=== PATIENT | female | born 1935 | race Caucasian/White ===

== ENCOUNTER 2018-11-09 11:34 | Emergency (ER) | payer MEDICARE ==
[~2018-11-09] VITALS: Ht 170.2 cm; Wt 63.6 kg
[~2018-11-09 11:34] MED LIST: FERR325T39 PO; HYDR-4383 PO; LOSA50TA64 PO; OMEP20CA10 PO
[2018-11-09] MEDS ORDERED: morphine 4 MG/ML inj SYRINge IV ONE (12:55)
[2018-11-09 13:37] LABS: BASOPHILS % (AUTO) 0.7 % (0-1); EOSINOPHILS % (AUTO) 0.9 % (0-6); HEMATOCRIT 32.2 % (35.0-45.0); HEMOGLOBIN 11.3 g/dl (12.0-16.0); LYMPHOCYTES # (AUTO) 1.5 X10'3 (1.1-4.8); LYMPHOCYTES % (AUTO) 27.5 % (21-51); MEAN CORPUSCULAR HEMOGLOBIN 31.7 PG (27.0-31.0); MEAN CORPUSCULAR HGB CONC 35.1 g/dL (33.0-36.5); MEAN CORPUSCULAR VOLUME 90.3 FL (78-98); MEAN PLATELET VOLUME 6.7 FL (7.4-10.4); MONOCYTES # (AUTO) 0.4 X10'3 (0-0.9); MONOCYTES % (AUTO) 7.7 % (2-12); NEUTROPHILS # (AUTO) 3.4 X10'3 (1.8-7.7); NEUTROPHILS % (AUTO) 63.2 % (42-75); PLATELET COUNT 295 X10'3 (140-440); RED BLOOD COUNT 3.56 X10'6 (4.20-5.60); WHITE BLOOD COUNT 5.4 X10'3 (4.5-11.0)
[2018-11-09 13:41] LABS: INR 1.1 INR
[2018-11-09 13:42] LABS: ALANINE AMINOTRANSFERASE 24 U/L (12-78); ALBUMIN 3.5 G/DL (3.4-5.0); ALKALINE PHOSPHATASE 48 IU/L (46-116); ANION GAP 8 (8-16); ASPARTATE AMINO TRANSFERASE 14 U/L (10-37); BILIRUBIN,TOTAL 0.5 MG/DL (0.1-1.0); BLOOD UREA NITROGEN 11 MG/DL (7-18); CALCIUM 8.7 MG/DL (8.5-10.1); CHLORIDE 100 MMOL/L (99-107); CREATININE 0.55 MG/DL (0.40-0.90); GLUCOSE 99 MG/DL (70-104); POTASSIUM 3.6 MMOL/L (3.5-5.1); SODIUM 134 MMOL/L (135-145); TOTAL CARBON DIOXIDE 25.7 MMOL/L (24-32); TOTAL PROTEIN 7.1 G/DL (6.4-8.2); eGFR > 90 ML/MIN
[2018-11-09 13:50] LABS: LIPASE 245 U/L (73-393)
[2018-11-09] MEDS ORDERED: furosemide 10 MG/1 ML 10ml inj IV ONE (14:20)
[2018-11-09 14:50] LABS: CLARITY,URINE CLEAR (Clear); COLOR,URINE YELLOW (Yellow); GLUCOSE, URINE NEGATIVE (Neg); KETONES,URINE NEGATIVE (Neg); LEUKOCYTE ESTERASE ,URINE SMALL (Neg); NITRITES, URINE NEGATIVE (Neg); OCCULT BLOOD,URINE TRACE-INTACT (Neg); PH,URINE 6.5 (4.8-8.0); PROTEIN,URINE NEGATIVE (Neg); UROBILINOGEN,URINE 0.2 E.U/dL (0.2-1.0)
[2018-11-09 14:55] LABS: UA COLLECTION TYPE CLN CATCH MIDSTREAM
[2018-11-09 14:57] LABS: BACTERIA,URINE 2+ /HPF (Neg); MUCUS STRANDS NONE SEEN /LPF (Neg); RBC,URINE 0-2 /HPF (0-2); SQUAMOUS EPITHELIAL CELL,UR MANY /LPF (FEW); YEAST FEW /HPF (NEGATIVE)
[2018-11-09] MEDS ORDERED: HYDR-3965 PO (15:25)
[2018-11-09 15:41] VITALS: BP 191/99
== END 2018-11-09 15:44 | disposition home or self-care (01) ==
LOC: ER 11:35
DX: S32.018A Other fracture of first lumbar vertebra, initial encounter for closed fracture (principal); I11.0 Hypertensive heart disease with heart failure; I50.9 Heart failure, unspecified; G89.29 Other chronic pain; F17.200 Nicotine dependence, unspecified, uncomplicated; Z90.49 Acquired absence of other specified parts of digestive tract; Z88.0 Allergy status to penicillin; Z79.899 Other long term (current) drug therapy; X58.XXXA Exposure to other specified factors, initial encounter; Y93.89 Activity, other specified; Y92.89 Other specified places as the place of occurrence of the external cause; Y99.8 Other external cause status
CPT/HCPCS: 36415; 71045; 72110; 80053; 81001; 83690; 83735; 83880; 84484; 85025; 85379; 85610; 93005; 96374; 99284; J2270

== ENCOUNTER 2020-09-17 13:44 | Observation (INO) | payer MEDICARE ==
[~2020-09-17] VITALS: Ht 170.2 cm; Wt 65.9 kg
[~2020-09-17 13:44] MED LIST changes: +ATOR20TA66 PO; +COR3.125T PO; -FERR325T39 PO; +FURO40TA4 PO; -HYDR-4383 PO; +LOSA25TA41 PO; -LOSA50TA64 PO; -OMEP20CA10 PO
[2020-09-17] MEDS ORDERED: pantoprazole 40 MG vial IV ONE ×2 (14:00→15:05)
[2020-09-17] MEDS ORDERED: famotidine/PF 10 mg/ml inj IV ONE (14:00)
[2020-09-17 14:39] LABS: BASOPHILS # (AUTO) 0.1 X10'3 (0-0.2); BASOPHILS % (AUTO) 1.1 % (0-1); EOSINOPHILS # (AUTO) 0.1 X10'3 (0-0.9); EOSINOPHILS % (AUTO) 2.2 % (0-6); LYMPHOCYTES # (AUTO) 1.4 X10'3 (1.1-4.8); LYMPHOCYTES % (AUTO) 24.6 % (21-51); MEAN CORPUSCULAR HEMOGLOBIN 29.1 PG (27.0-31.0); MEAN CORPUSCULAR HGB CONC 32.8 g/dL (33.0-36.5); MEAN CORPUSCULAR VOLUME 88.8 FL (78-98); MEAN PLATELET VOLUME 7.9 FL (7.4-10.4); MONOCYTES # (AUTO) 0.5 X10'3 (0-0.9); NEUTROPHILS # (AUTO) 3.5 X10'3 (1.8-7.7); NEUTROPHILS % (AUTO) 63.1 % (42-75); PLATELET COUNT 265 X10'3 (140-440); RED BLOOD COUNT 2.35 X10'6 (4.20-5.60); RED CELL DISTRIBUTION WIDTH 14.9 % (11.5-14.5); WHITE BLOOD COUNT 5.5 X10'3 (4.5-11.0)
[2020-09-17 14:45] LABS: HEMOGLOBIN 6.8 g/dl (12.0-16.0)
[2020-09-17 14:46] LABS: HEMATOCRIT 20.9 % (35.0-45.0)
[2020-09-17 14:50] LABS: ALANINE AMINOTRANSFERASE 13 U/L (12-78); ALBUMIN/GLOBULIN RATIO 1.1 (1.1-1.5); ALKALINE PHOSPHATASE 75 IU/L (46-116); ANION GAP 12 (8-16); ASPARTATE AMINO TRANSFERASE 13 U/L (10-37); BILIRUBIN,TOTAL 0.7 MG/DL (0.1-1.0); BLOOD UREA NITROGEN 37 MG/DL (7-18); BUN/CREATININE RATIO 24.8 (6.6-38.0); CHLORIDE 103 MMOL/L (99-107); CREATININE 1.49 MG/DL (0.40-0.90); GLUCOSE 94 MG/DL (70-104); POTASSIUM 4.3 MMOL/L (3.5-5.1); SODIUM 142 MMOL/L (135-145); TOTAL CARBON DIOXIDE 26.9 MMOL/L (24-32); TOTAL PROTEIN 7.5 G/DL (6.4-8.2); eGFR 33 ML/MIN
[2020-09-17 15:03] LABS: PARTIAL THROMBOPLASTIN TIME 22 SECONDS (22-32)
[2020-09-17] MEDS ORDERED: ATOR20TA66 PO (15:10)
[2020-09-17] MEDS ORDERED: LOSA50TA64 PO (15:10)
[2020-09-17] MEDS ORDERED: CARV3.122 PO (15:10)
[2020-09-17] MEDS ORDERED: FURO-149 PO (15:10)
[2020-09-17] MEDS ORDERED: NAPR-1166 PO (15:13)
[2020-09-17] MEDS ORDERED: DULO30CA52 PO (15:13)
[2020-09-17] MEDS ORDERED: OMEP-50 PO (15:18)
[2020-09-17] MEDS ORDERED: POTA20TA19 PO (15:18)
[2020-09-17] MEDS ORDERED: pantoprazole 40MG/NS 100ML BAG 100 ML IV SCH (16:00)
[2020-09-17] MEDS ORDERED: potassium Cl 20 mEq SR tablet PO PRN ×2 (16:05)
[2020-09-17] MEDS ORDERED: potassium Cl 40MEQ/1/2NS 520ml 520 ML IV PRN ×2 (16:05)
[2020-09-17] MEDS ORDERED: magnesium 2GM in 50ml NS 50 ML IV PRN (16:05)
[2020-09-17] MEDS: pantoprazole 40MG/NS 100ML BAG 100 ML IV SCH ×2 (16:05→20:04)
[2020-09-17] MEDS ORDERED: magnesium Cl slow-release 64mg tablet PO PRN (16:05)
[2020-09-17] MEDS ORDERED: magnesium 4gm in 100ml NS 100 ML IV PRN (16:05)
[2020-09-17] MEDS ORDERED: ondansetron/PF 4mg/2ml inj IV PRN (16:05)
[2020-09-17] MEDS ORDERED: normal saline 1000ml 1,000 ML IV SCH (16:05)
[2020-09-17 16:53] VITALS: BP 143/62
[2020-09-17 17:12] VITALS: BP 144/58
[2020-09-17 18:35] VITALS: BP 143/75
[2020-09-17 18:56] LABS: CLARITY,URINE CLEAR (Clear); COLOR,URINE YELLOW (Yellow); GLUCOSE, URINE NEGATIVE (Neg); KETONES,URINE NEGATIVE (Neg); LEUKOCYTE ESTERASE ,URINE SMALL (Neg); NITRITES, URINE NEGATIVE (Neg); OCCULT BLOOD,URINE NEGATIVE (Neg); PH,URINE 6.5 (4.8-8.0); PROTEIN,URINE NEGATIVE (Neg); UROBILINOGEN,URINE 0.2 E.U/dL (0.2-1.0)
[2020-09-17] MEDS: K and/or MAG REPLACEMENT MC SCH (19:06)
[2020-09-17 19:07] LABS: UA COLLECTION TYPE CLN CATCH MIDSTREAM
--- NOTE | 2020-09-17 19:07 | NUR ---
NS STARTED AFTER [facility] INFUSED
[2020-09-17 19:08] LABS: BACTERIA,URINE FEW /HPF (Neg); RBC,URINE NONE SEEN /HPF (0-2); SQUAMOUS EPITHELIAL CELL,UR FEW /LPF (FEW); WBC,URINE 0-4 /HPF (0-4)
[2020-09-17] MEDS ORDERED: carVEDilol 3.125mg tablet PO SCH (20:00)
[2020-09-17] MEDS: potassium Cl 20 mEq SR tablet PO SCH (20:30)
[2020-09-17] MEDS: furosemide 40mg tablet PO SCH (20:31)
--- NOTE | 2020-09-17 20:44 | NUR ---
dr white texted dr arias and patient's admit status was changed to no tele
--- NOTE | 2020-09-17 21:25 | NUR ---
friend marie brooks: [phone] home, cell [phone]
--- NOTE | 2020-09-17 21:49 | NUR ---
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 Pt walked to bed SBA. No complaints at this time.
[2020-09-17 22:02] VITALS: BP 160/65
[2020-09-17] MEDS ORDERED: acetaminophen 325mg tablet PO PRN (22:10)
[2020-09-17] MEDS ORDERED: HYDROcodone/acetaminophen 5mg/325mg tablet PO PRN (22:10)
[2020-09-18] VITALS: BP 148/68
[2020-09-18] MEDS: pantoprazole 40MG/NS 100ML BAG 100 ML IV SCH ×3 (01:21→11:00)
--- NOTE | 2020-09-18 06:39 | NUR ---
Problems reprioritized. Patient report given, questions answered & plan of care reviewed with JANIS Shelton.
--- NOTE | 2020-09-18 06:44 | NUR ---
Patient in room [facility]. I have received report from Kya Munoz RN and had the opportunity to ask questions and assume patient care.
[2020-09-18 07:06] LABS: BASOPHILS % (AUTO) 0.9 % (0-1); EOSINOPHILS # (AUTO) 0.1 X10'3 (0-0.9); EOSINOPHILS % (AUTO) 2.7 % (0-6); HEMOGLOBIN 7.8 g/dl (12.0-16.0); LYMPHOCYTES # (AUTO) 1.3 X10'3 (1.1-4.8); LYMPHOCYTES % (AUTO) 27.4 % (21-51); MEAN CORPUSCULAR HGB CONC 34.1 g/dL (33.0-36.5); MEAN CORPUSCULAR VOLUME 87.9 FL (78-98); MEAN PLATELET VOLUME 7.8 FL (7.4-10.4); MONOCYTES # (AUTO) 0.5 X10'3 (0-0.9); NEUTROPHILS # (AUTO) 2.7 X10'3 (1.8-7.7); PLATELET COUNT 216 X10'3 (140-440); RED BLOOD COUNT 2.62 X10'6 (4.20-5.60); RED CELL DISTRIBUTION WIDTH 14.8 % (11.5-14.5); WHITE BLOOD COUNT 4.7 X10'3 (4.5-11.0)
[2020-09-18 07:11] LABS: ALBUMIN 3.5 G/DL (3.4-5.0); ANION GAP 9 (8-16); BLOOD UREA NITROGEN 27 MG/DL (7-18); BUN/CREATININE RATIO 19.1 (6.6-38.0); CALCIUM 8.9 MG/DL (8.5-10.1); CHLORIDE 106 MMOL/L (99-107); CREATININE 1.41 MG/DL (0.40-0.90); GLUCOSE 83 MG/DL (70-104); MAGNESIUM 2.4 MG/DL (1.5-2.4); POTASSIUM 3.7 MMOL/L (3.5-5.1); SODIUM 142 MMOL/L (135-145); TOTAL CARBON DIOXIDE 27.2 MMOL/L (24-32); eGFR 36 ML/MIN
[2020-09-18] MEDS ORDERED: pantoprazole 40mg Tablet.DR PO SCH (07:30)
[2020-09-18 08:00] VITALS: BP 152/52
[2020-09-18] MEDS ORDERED: losartan 50mg tablet PO SCH (08:00)
[2020-09-18] MEDS: K and/or MAG REPLACEMENT MC SCH (08:00)
[2020-09-18] MEDS ORDERED: atorvastatin 20mg tablet PO SCH (08:00)
[2020-09-18] MEDS ORDERED: duloxetine 30mg CAPSULE.DR PO SCH (08:00)
[2020-09-18] MEDS: potassium Cl 20 mEq SR tablet PO SCH (09:37)
[2020-09-18] MEDS: furosemide 40mg tablet PO SCH (09:37)
[2020-09-18 11:00] VITALS: BP 151/75
--- NOTE | 2020-09-18 13:40 | NUR ---
PATIENTS IV TAKEN OUT AT THE TIME OF DISCHARG [facility] WHOLE AND INTACT UPON DISCHARGE. 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 PATIENT DID NOT START NEW MEDICATIONS AND UNDERSTANDS SIGNS AND SYMPTOMS OF GI BLEED. PATIENT WILL MAKE FOLLOW UP, AND WAS TAKEN DOWN TO THE LOBBY IN WHEELCHAIR.
== END 2020-09-18 14:04 | disposition home or self-care (01) ==
LOC: ER 13:45 → ED HOLD 16:37 → EDBEDREQ 20:46 → EDBEDREQTM 20:46 → SUR 3N 21:45
PROVIDERS: ADMIT Internal Medicine; ATTEND Internal Medicine
DX: D50.0 Iron deficiency anemia secondary to blood loss (chronic) (principal); K92.1 Melena; I11.0 Hypertensive heart disease with heart failure; I50.22 Chronic systolic (congestive) heart failure; I35.0 Nonrheumatic aortic (valve) stenosis; M81.0 Age-related osteoporosis without current pathological fracture; G89.29 Other chronic pain; M54.9 Dorsalgia, unspecified; J44.9 Chronic obstructive pulmonary disease, unspecified; S32.039A Unspecified fracture of third lumbar vertebra, initial encounter for closed fracture; Z87.891 Personal history of nicotine dependence; Z85.9 Personal history of malignant neoplasm, unspecified; Z90.49 Acquired absence of other specified parts of digestive tract; Z90.710 Acquired absence of both cervix and uterus; Z79.899 Other long term (current) drug therapy; Z88.0 Allergy status to penicillin; X58.XXXA Exposure to other specified factors, initial encounter; Y93.89 Activity, other specified; Y92.89 Other specified places as the place of occurrence of the external cause
CPT/HCPCS: 36415; 36430; 71045; 80048; 80053; 81001; 82140; 83735; 85025; 85610; 85730; 86885; 86900; 86901; 86920; 87081; 87088; 93005; 96365; 96366; 96375; 96376; 97116; 97161; 97530; 99285; C9113; G0378; J3490; J7030; P9016

== ENCOUNTER 2024-01-03 16:26 | Emergency (ER) | payer MEDICARE ==
[~2024-01-03] VITALS: Ht 170.2 cm; Wt 65.9 kg
[~2024-01-03 16:26] MED LIST changes: +CARV3.122 PO; -COR3.125T PO; +DULO30CA52 PO; +FURO-149 PO; -FURO40TA4 PO; -LOSA25TA41 PO; +LOSA50TA64 PO; +OMEP20CA16 PO; +POTA-207 PO
[2024-01-03] MEDS: HYDROcodone/acetaminophen 5mg/325mg tablet PO ONE (16:47)
[2024-01-03] MEDS ORDERED: HYDR-3965 PO (17:36)
[2024-01-03 18:02] VITALS: BP 161/70; PULSE 80; RESP 17; TEMP 97.9; O2SAT 98
== END 2024-01-03 18:03 | disposition home or self-care (01) ==
LOC: ER 16:26
DX: M54.50 Low back pain, unspecified (principal); I10 Essential (primary) hypertension; Z88.0 Allergy status to penicillin; Z79.899 Other long term (current) drug therapy; Z90.49 Acquired absence of other specified parts of digestive tract; Z98.890 Other specified postprocedural states
CPT/HCPCS: 72110; 99284

== ENCOUNTER 2024-04-02 11:37 | Emergency (ER) | payer MEDICARE ==
[~2024-04-02] VITALS: Ht 167.6 cm; Wt 50.0 kg
[~2024-04-02 11:37] MED LIST changes: +HYDR-3965 PO
[2024-04-02] MEDS ORDERED: CLIN-143 PO (11:48)
[2024-04-02] MEDS ORDERED: CIPR7.5D7 EACH EAR (11:55)
[2024-04-02 12:12] VITALS: BP 124/66; PULSE 70; RESP 18; TEMP 97.8; O2SAT 99
== END 2024-04-02 12:14 | disposition home or self-care (01) ==
LOC: ER 11:37
DX: H66.91 Otitis media, unspecified, right ear (principal); H60.8X1 Other otitis externa, right ear; I10 Essential (primary) hypertension; G89.29 Other chronic pain; M54.9 Dorsalgia, unspecified; Z90.49 Acquired absence of other specified parts of digestive tract; Z98.890 Other specified postprocedural states; Z88.0 Allergy status to penicillin; Z79.899 Other long term (current) drug therapy; Z79.2 Long term (current) use of antibiotics
CPT/HCPCS: 99283